=== PATIENT | female | born 1980 ===

== ENCOUNTER 2024-12-12 07:45 | Inpatient (IN) | payer OTHER ==
[~2024-12-12] VITALS: Ht 162.6 cm; Wt 95.3 kg
[2024-12-12] MEDS ORDERED: PROVERA2.5 MG PO (08:37)
[2024-12-12] MEDS ORDERED: SYNTHROID137 MCG PO (08:37)
[2024-12-12] MEDS ORDERED: TELMISARTAN-HC1 EAC2 PO (08:37)
[2024-12-12 08:38] VITALS: BP 124/77
[2024-12-12 08:43] VITALS: BP 120/80
[2024-12-12 08:46] LABS: PH,URINE 6.5 (5.0-8.0); URINE APPEARANCE Cloudy; URINE BILIRRUBIN Negative (NEGATIVE); URINE BLOOD Negative; URINE COLOR Dark Yellow; URINE GLUCOSE Negative (NEGATIVE); URINE KETONE Trace (NEGATIVE); URINE LEUKOCYTE Trace; URINE NITRATE Negative; URINE PROTEIN 30 (NEGATIVE)
[2024-12-12 08:51] LABS: HEMATOCRIT 35.8 % (36.0-45.00); MEAN CELL VOLUME 84.5 fL (80.00-100.00); MEAN CORPUSCULAR HEMOGLOBIN 28.2 pg (27.00-32.0); MEAN CORPUSCULAR HGB CONC 33.4 g/dl (32.0-36.0); PLATELET COUNT 246 K/uL (150-450); RED BLOOD COUNT 4.24 M/uL (4.00-6.00); RED CELL DISTRIBUTION WIDTH 16.5 % (11.5-14.5)
[2024-12-12 08:51] LABS: URINE BACTERIA 1603.4 uL (0.0-1933); URINE EPITHELIAL CELLS 37.1 uL (0.0-38.8); URINE RBC 12.5 uL (0.0-20.8); URINE WBC 15.1 uL (0.0-23.2)
[2024-12-12 09:06] LABS: URINE CAST 0.29 uL (0.0-1.40)
[2024-12-12 09:11] LABS: PROTHROMBIN TIME 10.9 SECONDS (9.0-11.5)
[2024-12-12 09:58] LABS: ALBUMIN 3.5 gm/dL (3.4-5.0); BILIRUBIN TOTAL 0.43 mg/dL (0.3-1.2); CREATININE SERUM 0.68 mg/dL (0.55-1.02); GFR 93.15; GLOBULINA 3.2 G/DL (2.4-3.5); POTASSIUM 3.42 mEq/L (3.5-5.1); TOTAL PROTEIN 6.7 gm/dL (6.4-8.2)
[2024-12-20] MEDS ORDERED: METRONIDAZOLE/SODIUM CHLORIDE 500 MG/100 ML PIGGYBACK IV ONE (07:51)
[2024-12-20] MEDS ORDERED: CEFOXITIN SODIUM 2,000 MG VIAL IV ONE (07:51)
[2024-12-20] MEDS ORDERED: POVIDONE-IODINE 118 ML BOTT TOP ONE (08:00)
[2024-12-20] MEDS ORDERED: BUPIVACAINE HCL/MPF 0.5% 30ML VIAL ONE (08:01)
[2024-12-20] MEDS ORDERED: RINGERS SOLUTION,LACTATED 1,000 ML IV SCH (13:45)
[2024-12-20] MEDS ORDERED: MORPHINE SULFATE 4 MG/ML CARTRIDGE IV PRN (13:45)
[2024-12-20] MEDS ORDERED: ONDANSETRON HCL 2 MG/ML VIAL IV PRN (13:45)
[2024-12-20] MEDS ORDERED: KETOROLAC TROMETHAMINE 30 MG VIAL IV PRN (14:00)
[2024-12-20 16:44] VITALS: BP 124/77
[2024-12-20 17:07] LABS: HEMATOCRIT 37.3 % (36.0-45.00); HEMOGLOBIN 12.1 g/dL (12.0-15.00); MEAN CELL VOLUME 86.3 fL (80.00-100.00); MEAN CORPUSCULAR HEMOGLOBIN 27.9 pg (27.00-32.0); MEAN CORPUSCULAR HGB CONC 32.4 g/dl (32.0-36.0); PLATELET COUNT 247 K/uL (150-450); RED BLOOD COUNT 4.32 M/uL (4.00-6.00); RED CELL DISTRIBUTION WIDTH 16.5 % (11.5-14.5)
[2024-12-20] MEDS ORDERED: SIMETHICONE 125 MG CAPSULE PO SCH (18:00)
[2024-12-20] MEDS ORDERED: FAMOTIDINE/PF 20 MG/2 ML VIAL IV SCH (21:00)
[2024-12-21] VITALS: BP 115/61
[2024-12-21] MEDS ORDERED: ACETAMINOPHEN WITH CODEINE 1 UDTAB TABLET PO PRN (08:45)
[2024-12-21] MEDS ORDERED: NAPROXEN 500 MG TABLET PO PRN (08:45)
[2024-12-21] MEDS ORDERED: ACETAMINOPHEN-1 EAC2 PO (08:45)
[2024-12-21] MEDS ORDERED: NAPR500T14 PO (08:46)
[2024-12-21] MEDS ORDERED: FAMOTIDINE20 MG PO (08:46)
[2024-12-21 08:57] VITALS: BP 98/75
[2024-12-21] MEDS ORDERED: FAMOtidine 20 MG TABLET PO SCH (09:00)
== END 2024-12-21 10:31 | disposition home or self-care (01) | DRG 743 ==
LOC: OB/GYN 12-20 05:42 → O/R 12-20 05:42 → SURH 12-20 08:00 → OB/GYN 12-20 14:30
PROVIDERS: ADMIT Obstetrics & Gynecology; ATTEND Obstetrics & Gynecology
PROC: 0UT9FZZ Resection of Uterus, Via Natural or Artificial Opening With Percutaneous Endoscopic Assistance (ICD-10-PCS; principal; 2024-12-20)
PROC: 0UT7FZZ Resection of Bilateral Fallopian Tubes, Via Natural or Artificial Opening With Percutaneous Endoscopic Assistance (ICD-10-PCS; 2024-12-20)
PROC: 0TJB8ZZ Inspection of Bladder, Via Natural or Artificial Opening Endoscopic (ICD-10-PCS; 2024-12-20)
DX: N80.03 Adenomyosis of the uterus (principal); N92.0 Excessive and frequent menstruation with regular cycle; N72 Inflammatory disease of cervix uteri; R10.2 Pelvic and perineal pain; N81.11 Cystocele, midline